=== PATIENT | male | born 1960 | race American Indian/Alaskan Native ===

== ENCOUNTER 2019-03-11 18:34 | Emergency (ER) | payer OTHER ==
[2019-03-11 18:54] VITALS: BP 159/86
--- NOTE | 2019-03-11 18:57 | Emergency Department Report ---
Chief Complaint: High BP Stated Complaint: HBP Time Seen by Provider: 03/11/19 18:52 - HPI History of Present Illness: This is a 59 y.o. M. that presents to the ER for elevated blood pressure. 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 Blood pressure 180/112, 182/110 during DOT physical PMH HTN Patient reports taking blood pressure medication and BP normally 120s/80s. - Exam Vital Signs: Vital Signs 03/11/19 18:52 Temperature 98.0 F Pulse Rate 71 Respiratory 18 Rate Blood Pressure 159/86 O2 Sat by Pulse 97 Oximetry Physical Exam: GENERAL: The patient is well looking, in no acute distress. CHEST: Air entry is adequate bilaterally with no rhonchi, and crackles. HEART: Sounds 1 and 2 are heard and are normal. Regular rate and rhythm, no tachycardic, murmurs, gallops, or rubs. ABDOMEN: Soft and nontender. Bowel sounds are present and normal. There is no hepatosplenomegaly. SKIN: Without rash. EXTREMITIES: Without edema, cyanosis, or clubbing. MSE screening note: Focused history and physical exam performed. Due to findings the following was ordered: This initial assessment/diagnostic orders/clinical plan/treatment(s) is/are subject to change based on patient's health status, clinical progression and re- assessment by fellow clinical providers in the ED. Further treatment and workup at subsequent clinical providers discretion. Patient/guardians urged not to elope from the ED as their condition may be serious if not clinically assessed and managed. Initial orders include: ED Medical Decision Making - Medical Decision Making Patient was examined by me. Vitals are normal and patient is in no acute distress. Patient is asymptomatic. Blood pressure 159/86. Instructed to follow up with primary care doctor within the next 2-3 days. Patient informed of results. Plan discussed with patient to discharge home and treat outpatient. He agrees with ER plan. Patient discharged home in stable condition. Follow up with PCP in 2-3 days. ED Disposition for MSE Clinical Impression: Asymptomatic hypertension Disposition: DC- TO HOME OR SELFCARE Is pt being admited?: No Does the pt Need Aspirin: No Condition: Stable Instructions: Hypertension (ED) Additional Instructions: Blood pressure 159/86 while in the emergency room. Encourage stop smoking to reduce cardiovascular risk. Moderate caffeine consumption is acceptable. Begin and maintain aerobic exercise, with a goal of at least 30 minutes of moderate intensity, dynamic aerobic exercise (walking, jogging, cycling, or swimming) 5 days per week to total 150 minutes as tolerated or recommended by a physician. Continue taking current medication daily as prescribed. Follow up with Primary Care Provider in 2-3 day. Referrals: GIA ALVAREZ MD [Primary Care Provider] - 3-5 Days [facility] [Provider Group] - 3-5 Days [facility] [Provider Group] - 3-5 Days [facility] [Provider Group] - 3-5 Days Forms: Work/School Release Form(ED) Time of Disposition: 19:04
== END 2019-03-11 19:50 | disposition home or self-care (01) ==
LOC: ED 18:34
DX: I10 Essential (primary) hypertension (principal)
CPT/HCPCS: 99282